=== PATIENT | female | born 1985 | race African-American/Black ===

== ENCOUNTER 2017-06-16 03:41 | Inpatient (IN) | payer OTHER ==
[~2017-06-16] VITALS: Ht 149.9 cm; Wt 72.0 kg
[2017-06-16 04:34] LABS: HEMATOCRIT 35.7 % (36.0-46.0); HEMOGLOBIN 12.2 G/DL (11.9-15.5); MCH 30.1 PG (29.0-34.0); MCHC 34.2 G/DL (30.0-36.0); MCV 88.1 FL (83-99); RBC DIS.WIDTH-CV 12.4 % (11.8-14.6); RBC DIS.WIDTH-SD 40.3 % (39-53); RED BLOOD COUNT 4.05 M/uL (3.80-5.20); WHITE BLOOD COUNT 15.9 K/uL (4.1-10.2)
[2017-06-16 04:43] LABS: CHLORIDE 107 mEq/L (99-109); POTASSIUM 4.2 mEq/L (3.7-5.4); SODIUM 137 mEq/L (136-147)
[2017-06-16 04:45] LABS: GLUCOSE 76 mg/dL (70-99)
[2017-06-16 04:48] LABS: SERUM ETHYL ALCOHOL < 10 mg/dL
[2017-06-16 04:49] LABS: GFR ESTIMATE (CALCULATED) > 59 mL/min/
[2017-06-16 04:50] LABS: UREA NITROGEN (BUN) 20 mg/dL (9-23)
[2017-06-16 04:57] LABS: QUANTITATIVE HCG < 4.0 MIU/ML
[2017-06-16 05:20] LABS: PLAT.SUFFICIENCY ADEQUATE; PLATELET COUNT 222 K/uL (156-360)
[2017-06-16 06:14] LABS: ACETAMINOPHEN (TYLENOL) < 10 mcg/mL (10-30); SALICYLATE < 5.0 MG/DL (15-30)
[2017-06-16 11:27] LABS: APPEARANCE SL.HAZY ((CLEAR)); BILIRUBIN NEGATIVE; BLOOD SMALL; COLOR YELLOW ((YELLOW)); GLUCOSE (STRIP) NEGATIVE; KETONES 80; LEUKOCYTES NEGATIVE; NITRITE NEGATIVE; PROTEIN (STRIP) 30; SPECIFIC GRAVITY 1.026 (1.000-1.030); UROBILINOGEN 0.2 MG/DL (0.2-1.0)
[2017-06-16 11:29] LABS: BACTERIA RARE /HPF; EPITHELIAL CELLS RARE /HPF; MUCUS TRACE /LPF; RED BLOOD CELLS 0-5 /HPF (0-5); UCUL ADDED? NO; WHITE BLOOD CELLS 0-5 /HPF (0-5)
[2017-06-16 11:35] LABS: AMPHETAMINE NEGATIVE (500 ng/mL); BARBITURATES NEGATIVE (200 ng/mL); BENZODIAZEPINES PRESUMPTIVE POSITIVE (150 ng/mL); BUPRENORPHINE NEGATIVE (10 ng/mL); COCAINE NEGATIVE (150 ng/mL); METHADONE NEGATIVE (200 ng/mL); METHAMPHETAMINE NEGATIVE (500 ng/mL); OPIATES (MORPHINE) NEGATIVE (100 ng/mL); OXYCODONE NEGATIVE (100 ng/mL); PHENCYCLIDINE NEGATIVE (25 ng/mL); PROPOXYPHENE NEGATIVE (300 ng/mL); THC CANNABINOIDS NEGATIVE (50 ng/mL); TRICYCLIC ANTIDEPRESSANTS PRESUMPTIVE POSITIVE (300 ng/mL)
[2017-06-16 12:18] LABS: BENZODIAZEPINES, URINE SCREEN Negative (200 ng/mL)
[2017-06-16 13:18] VITALS: BP 118/57
[2017-06-16 16:43] VITALS: BP 106/55
[2017-06-17 07:47] VITALS: BP 103/52
[2017-06-17 15:32] VITALS: BP 141/63
[2017-06-18 07:59] VITALS: BP 115/66
[2017-06-18 15:51] VITALS: BP 115/64
[2017-06-19 07:36] VITALS: BP 113/56
[2017-06-19 16:01] VITALS: BP 117/71
[2017-06-20 07:43] VITALS: BP 121/68
[2017-06-20] MEDS ORDERED: FLUPHENAZINE HCL1 MG PO (09:04)
[2017-06-20] MEDS ORDERED: QUETIAPINE FUM400 MG PO (09:04)
== END 2017-06-20 10:29 | disposition home or self-care (01) | DRG 885 ==
LOC: EME 03:41 → EDOF 12:07 → 1WEST 12:07 → ENRESERV 12:20 → 1WEST 12:44
PROVIDERS: Emergency Medicine
DX: F31.81 Bipolar II disorder (principal); R45.851 Suicidal ideations; F22 Delusional disorders; F20.9 Schizophrenia, unspecified; Z91.14 Patient's other noncompliance with medication regimen; Z81.8 Family history of other mental and behavioral disorders; Z68.32 Body mass index [BMI] 32.0-32.9, adult
CPT/HCPCS: 71045; 80048; 81003; 84702; 84999; 85027; 90837; 97150 GO; 97165 GO; 99281; 99285; G0480; J1630; J2060; Q0177

== ENCOUNTER 2017-07-03 02:56 | Inpatient (IN) | payer OTHER ==
[~2017-07-03] VITALS: Ht 154.9 cm; Wt 66.8 kg
[~2017-07-03 02:56] MED LIST: FLUPHENAZINE HCL1 MG PO; QUETIAPINE FUM400 MG PO
[2017-07-03 03:36] LABS: HEMATOCRIT 38.1 % (36.0-46.0); HEMOGLOBIN 13.4 G/DL (11.9-15.5); MCH 30.1 PG (29.0-34.0); MCHC 35.2 G/DL (30.0-36.0); MCV 85.6 FL (83-99); PLATELET COUNT 256 K/uL (156-360); RBC DIS.WIDTH-CV 12.6 % (11.8-14.6); RBC DIS.WIDTH-SD 39.2 % (39-53); RED BLOOD COUNT 4.45 M/uL (3.80-5.20); WHITE BLOOD COUNT 15.4 K/uL (4.1-10.2)
[2017-07-03 03:53] LABS: CHLORIDE 99 mEq/L (99-109); POTASSIUM 3.7 mEq/L (3.7-5.4); SODIUM 135 mEq/L (136-147)
[2017-07-03 03:55] LABS: GLUCOSE 92 mg/dL (70-99)
[2017-07-03 03:58] LABS: SERUM ETHYL ALCOHOL < 10 mg/dL
[2017-07-03 03:59] LABS: CREATININE 1.4 mg/dL (0.6-1.3); GFR ESTIMATE (CALCULATED) 57 mL/min/
[2017-07-03 04:00] LABS: UREA NITROGEN (BUN) 17 mg/dL (9-23)
[2017-07-03 04:07] LABS: QUANTITATIVE HCG < 4.0 MIU/ML
[2017-07-03 10:58] LABS: APPEARANCE SL.HAZY ((CLEAR)); BILIRUBIN NEGATIVE; BLOOD SMALL; COLOR YELLOW ((YELLOW)); GLUCOSE (STRIP) NEGATIVE; KETONES 80; LEUKOCYTES NEGATIVE; NITRITE NEGATIVE; PROTEIN (STRIP) 30; SPECIFIC GRAVITY 1.023 (1.000-1.030); UROBILINOGEN 0.2 MG/DL (0.2-1.0)
[2017-07-03 11:06] LABS: AMPHETAMINE NEGATIVE (500 ng/mL); BARBITURATES NEGATIVE (200 ng/mL); BENZODIAZEPINES NEGATIVE (150 ng/mL); BUPRENORPHINE NEGATIVE (10 ng/mL); COCAINE NEGATIVE (150 ng/mL); METHADONE NEGATIVE (200 ng/mL); METHAMPHETAMINE NEGATIVE (500 ng/mL); OPIATES (MORPHINE) NEGATIVE (100 ng/mL); OXYCODONE NEGATIVE (100 ng/mL); PHENCYCLIDINE NEGATIVE (25 ng/mL); PROPOXYPHENE NEGATIVE (300 ng/mL); THC CANNABINOIDS NEGATIVE (50 ng/mL); TRICYCLIC ANTIDEPRESSANTS PRESUMPTIVE POSITIVE (300 ng/mL)
[2017-07-03 11:13] LABS: BACTERIA RARE /HPF; EPITHELIAL CELLS RARE /HPF; MUCUS TRACE /LPF; UCUL ADDED? NO; WHITE BLOOD CELLS 0-5 /HPF (0-5)
[2017-07-04 12:07] VITALS: BP 101/64
[2017-07-04 12:09] VITALS: BP 101/64
[2017-07-04 16:04] VITALS: BP 102/65
[2017-07-05 07:44] VITALS: BP 103/58
[2017-07-05 15:30] VITALS: BP 110/62
[2017-07-06 07:16] VITALS: BP 98/62
[2017-07-06 15:32] VITALS: BP 160/72
[2017-07-06] MEDS ORDERED: PROLIXIN1 MG PO (19:43)
[2017-07-07 07:41] VITALS: BP 115/55
[2017-07-07 15:36] VITALS: BP 126/76
[2017-07-08 08:10] VITALS: BP 124/61
[2017-07-08 15:39] VITALS: BP 130/55
[2017-07-09 09:11] VITALS: BP 117/66
[2017-07-09 15:09] VITALS: BP 162/89
[2017-07-10 08:01] VITALS: BP 118/77
[2017-07-10 15:25] VITALS: BP 129/83
[2017-07-11 07:51] VITALS: BP 115/66
[2017-07-11 15:56] VITALS: BP 131/72
[2017-07-12 07:33] VITALS: BP 132/60
[2017-07-12 15:20] VITALS: BP 122/74
[2017-07-13 07:43] VITALS: BP 113/61
[2017-07-13] MEDS ORDERED: FLUPHENAZINE HCL1 MG PO (10:35)
[2017-07-13] MEDS ORDERED: QUETIAPINE FUM300 M1 PO (10:35)
[2017-07-13] MEDS ORDERED: FLUPHENAZI25 MG/1 ML IM (10:36)
== END 2017-07-13 12:29 | disposition home or self-care (01) | DRG 885 ==
LOC: EME 02:56 → 1WEST 07-04 10:26 → EDOF 07-04 10:26 → ENRESERV 07-04 11:20 → 1WEST 07-04 11:52
PROVIDERS: Emergency Medicine
DX: F20.0 Paranoid schizophrenia (principal); E86.0 Dehydration; Z81.8 Family history of other mental and behavioral disorders
CPT/HCPCS: 80048; 81003; 84702; 85027; 90837; 97150 GO; 97165 GO; 99281; 99285; G0480; J2680

== ENCOUNTER 2017-08-06 06:35 | Emergency (ER) | payer OTHER ==
[~2017-08-06] VITALS: Ht 154.9 cm; Wt 69.8 kg
[~2017-08-06 06:35] MED LIST changes: +FLUPHENAZI25 MG/1 ML IM; +PROLIXIN1 MG PO; +QUETIAPINE FUM300 M1 PO
[2017-08-06 07:21] LABS: APPEARANCE CLEAR ((CLEAR)); BILIRUBIN NEGATIVE; BLOOD NEGATIVE; COLOR YELLOW ((YELLOW)); GLUCOSE (STRIP) NEGATIVE; KETONES NEGATIVE; LEUKOCYTES NEGATIVE; NITRITE NEGATIVE; PROTEIN (STRIP) NEGATIVE; SPECIFIC GRAVITY 1.024 (1.000-1.030); UCUL ADDED? NO; UROBILINOGEN 0.2 MG/DL (0.2-1.0)
[2017-08-06 07:44] LABS: AMPHETAMINE NEGATIVE (500 ng/mL); BARBITURATES NEGATIVE (200 ng/mL); BENZODIAZEPINES NEGATIVE (150 ng/mL); BUPRENORPHINE NEGATIVE (10 ng/mL); COCAINE NEGATIVE (150 ng/mL); METHADONE NEGATIVE (200 ng/mL); METHAMPHETAMINE NEGATIVE (500 ng/mL); OPIATES (MORPHINE) NEGATIVE (100 ng/mL); OXYCODONE NEGATIVE (100 ng/mL); PHENCYCLIDINE NEGATIVE (25 ng/mL); PROPOXYPHENE NEGATIVE (300 ng/mL); THC CANNABINOIDS NEGATIVE (50 ng/mL); TRICYCLIC ANTIDEPRESSANTS NEGATIVE (300 ng/mL)
[2017-08-06 07:56] LABS: HEMATOCRIT 35.8 % (36.0-46.0); HEMOGLOBIN 11.6 G/DL (11.9-15.5); MCH 29.6 PG (29.0-34.0); MCHC 32.4 G/DL (30.0-36.0); MCV 91.3 FL (83-99); PLATELET COUNT 241 K/uL (156-360); RBC DIS.WIDTH-CV 12.6 % (11.8-14.6); RBC DIS.WIDTH-SD 42.1 % (39-53); RED BLOOD COUNT 3.92 M/uL (3.80-5.20); WHITE BLOOD COUNT 10.1 K/uL (4.1-10.2)
[2017-08-06 08:31] LABS: CHLORIDE 105 mEq/L (99-109); POTASSIUM 3.6 mEq/L (3.7-5.4); QUANTITATIVE HCG < 4.0 MIU/ML; SODIUM 136 mEq/L (136-147)
[2017-08-06 08:33] LABS: GLUCOSE 90 mg/dL (70-99)
[2017-08-06 08:36] LABS: CREATININE 0.7 mg/dL (0.6-1.3); GFR ESTIMATE (CALCULATED) > 59 mL/min/; SERUM ETHYL ALCOHOL < 10 mg/dL
[2017-08-06 08:37] LABS: UREA NITROGEN (BUN) 8 mg/dL (9-23)
[2017-08-06 16:35] VITALS: BP 112/71
== END 2017-08-06 16:35 ==
LOC: EME 06:35
PROVIDERS: Nurse Practitioner Family
DX: F20.9 Schizophrenia, unspecified (principal); F31.81 Bipolar II disorder; Z04.6 Encounter for general psychiatric examination, requested by authority; Z91.14 Patient's other noncompliance with medication regimen
CPT/HCPCS: 80048; 81003; 84702; 85027; 90837; 99281; 99285; G0480; J2060; J3486

== ENCOUNTER 2017-08-21 09:34 | Emergency (ER) | payer OTHER ==
[~2017-08-21] VITALS: Ht 154.9 cm; Wt 65.0 kg
[2017-08-21 10:25] LABS: BASOPHIL (%) 0.4 % (0-1); EOSINOPHIL (%) 1.5 % (0-5); EOSINOPHIL COUNT 0.1 K/uL (0-0.3); HEMATOCRIT 38.5 % (36.0-46.0); HEMOGLOBIN 12.3 G/DL (11.9-15.5); IMMATURE GRANULOCYTE (%) 0.6 % (0.0-0.7); LYMPHOCYTE (%) 25.9 % (15-42); LYMPHOCYTE COUNT 2.5 K/uL (1.0-2.8); MCH 29.9 PG (29.0-34.0); MCHC 31.9 G/DL (30.0-36.0); MCV 93.4 FL (83-99); MONOCYTE (%) 7.1 % (3-12); MONOCYTE COUNT 0.7 K/uL (0-0.8); NEUTROPHIL (%) 64.5 % (45-76); NEUTROPHIL COUNT 6.1 K/uL (1.8-6.4); PLATELET COUNT 195 K/uL (156-360); RBC DIS.WIDTH-CV 13.5 % (11.8-14.6); RBC DIS.WIDTH-SD 45.7 % (39-53); RED BLOOD COUNT 4.12 M/uL (3.80-5.20); WHITE BLOOD COUNT 9.5 K/uL (4.1-10.2)
[2017-08-21 10:46] LABS: CHLORIDE 110 mEq/L (99-109); POTASSIUM 4.3 mEq/L (3.7-5.4); SODIUM 138 mEq/L (136-147)
[2017-08-21 10:47] LABS: GLUCOSE 77 mg/dL (70-99)
[2017-08-21 10:51] LABS: CREATININE 0.7 mg/dL (0.6-1.3); GFR ESTIMATE (CALCULATED) > 59 mL/min/; SERUM ETHYL ALCOHOL < 10 mg/dL
[2017-08-21 10:52] LABS: UREA NITROGEN (BUN) 15 mg/dL (9-23)
[2017-08-21 11:45] VITALS: BP 103/57
[2017-08-22] MEDS ORDERED: DEPAKOTE500 MG PO (19:20)
[2017-08-22] MEDS ORDERED: SEROQUEL300 MG PO (19:20)
[2017-08-22] MEDS ORDERED: CENTRUM WOMEN1 EACH PO (19:22)
[2017-08-22] MEDS ORDERED: ADVIL200 MG PO (19:23)
[2017-08-22] MEDS ORDERED: BENADRYL25 MG PO (19:23)
[2017-08-22] MEDS ORDERED: IRON325 M1 PO (19:24)
== END 2017-08-21 11:52 | disposition home or self-care (01) ==
LOC: EME 09:34
PROVIDERS: Emergency Medicine
DX: F20.9 Schizophrenia, unspecified (principal); F41.9 Anxiety disorder, unspecified; F31.9 Bipolar disorder, unspecified
CPT/HCPCS: 80048; 81025; 85025; 90839; 93005; 99281; 99285; G0480

== ENCOUNTER 2017-08-22 14:44 | Emergency (ER) | payer OTHER ==
[~2017-08-22] VITALS: Ht 157.5 cm; Wt 71.9 kg
[2017-08-22 15:24] VITALS: BP 108/65
[2017-08-22] MEDS ORDERED: DEPAKOTE500 MG PO (19:20)
[2017-08-22] MEDS ORDERED: SEROQUEL300 MG PO (19:20)
[2017-08-22] MEDS ORDERED: CENTRUM WOMEN1 EACH PO (19:22)
[2017-08-22] MEDS ORDERED: ADVIL200 MG PO (19:23)
[2017-08-22] MEDS ORDERED: BENADRYL25 MG PO (19:23)
[2017-08-22] MEDS ORDERED: IRON325 M1 PO (19:24)
== END 2017-08-22 15:25 | disposition home or self-care (01) ==
LOC: EME 14:44
DX: F31.9 Bipolar disorder, unspecified (principal); E73.9 Lactose intolerance, unspecified
CPT/HCPCS: 99281; 99284

== ENCOUNTER 2017-08-22 17:08 | Inpatient (IN) | payer OTHER ==
[~2017-08-22] VITALS: Ht 157.5 cm; Wt 72.4 kg
[2017-08-22 17:47] LABS: HEMATOCRIT 33.4 % (36.0-46.0); HEMOGLOBIN 10.9 G/DL (11.9-15.5); MCH 29.8 PG (29.0-34.0); MCHC 32.6 G/DL (30.0-36.0); MCV 91.3 FL (83-99); RBC DIS.WIDTH-CV 13.4 % (11.8-14.6); RBC DIS.WIDTH-SD 43.8 % (39-53); RED BLOOD COUNT 3.66 M/uL (3.80-5.20); WHITE BLOOD COUNT 9.2 K/uL (4.1-10.2)
[2017-08-22 18:09] LABS: ALBUMIN 3.9 g/dL (3.2-4.8); CHLORIDE 107 mEq/L (99-109); SODIUM 138 mEq/L (136-147)
[2017-08-22 18:12] LABS: GLUCOSE 94 mg/dL (70-99); TOTAL PROTEIN 6.8 g/dL (6.4-8.3)
[2017-08-22 18:13] LABS: TOTAL BILIRUBIN 0.3 mg/dL (0.0-1.0)
[2017-08-22 18:14] LABS: POTASSIUM 3.4 mEq/L (3.7-5.4); SERUM ETHYL ALCOHOL < 10 mg/dL
[2017-08-22 18:15] LABS: ALKALINE PHOSPHATASE 62 IU/L (3-129); CREATININE 0.8 mg/dL (0.6-1.3); GFR ESTIMATE (CALCULATED) > 59 mL/min/
[2017-08-22 18:16] LABS: UREA NITROGEN (BUN) 14 mg/dL (9-23)
[2017-08-22 18:17] LABS: AST (GOT) 21 IU/L (2-34); PLAT.SUFFICIENCY ADEQUATE; PLATELET COUNT 236 K/uL (156-360)
[2017-08-22 18:18] LABS: ALT (GPT) 21 IU/L (3-49)
[2017-08-22 18:24] LABS: QUANTITATIVE HCG < 4.0 MIU/ML
[2017-08-22] MEDS ORDERED: SEROQUEL300 MG PO (19:20)
[2017-08-22] MEDS ORDERED: DEPAKOTE500 MG PO (19:20)
[2017-08-22] MEDS ORDERED: CENTRUM WOMEN1 EACH PO (19:22)
[2017-08-22] MEDS ORDERED: BENADRYL25 MG PO (19:23)
[2017-08-22] MEDS ORDERED: ADVIL200 MG PO (19:23)
[2017-08-22] MEDS ORDERED: IRON325 M1 PO (19:24)
[2017-08-22 21:12] VITALS: BP 126/77
[2017-08-23 07:46] VITALS: BP 136/56
[2017-08-23 15:56] VITALS: BP 116/61
[2017-08-24 07:47] VITALS: BP 123/61
[2017-08-24 15:53] VITALS: BP 120/67
[2017-08-25 09:46] VITALS: BP 136/57
[2017-08-25 16:24] VITALS: BP 107/57
[2017-08-26 08:04] VITALS: BP 97/46
[2017-08-26 15:33] VITALS: BP 110/57
[2017-08-27 07:56] VITALS: BP 115/63
[2017-08-27 16:21] VITALS: BP 104/56
[2017-08-28 07:56] VITALS: BP 102/55
[2017-08-28 15:46] VITALS: BP 113/63
[2017-08-29 08:01] VITALS: BP 108/56
[2017-08-29] MEDS ORDERED: DIVALPROEX SOD500 MG PO (09:28)
[2017-08-29] MEDS ORDERED: SEROQUEL300 MG PO (09:28)
[2017-08-29] MEDS ORDERED: FLUPHENAZI25 MG/1 ML IM (09:29)
== END 2017-08-29 11:43 | disposition home or self-care (01) | DRG 885 ==
LOC: EME 17:08 → 1WEST 18:34 → EDOF 18:34 → 1WEST 18:34 → ENRESERV 20:55 → 1WEST 08-29 11:43
PROVIDERS: Emergency Medicine
DX: F25.0 Schizoaffective disorder, bipolar type (principal); F41.9 Anxiety disorder, unspecified; Z91.14 Patient's other noncompliance with medication regimen; Z81.8 Family history of other mental and behavioral disorders
CPT/HCPCS: 80048; 80053; 80164; 81003; 81025; 84702; 85025; 85027; 90839; 93005; 97150 GO; 97166 GO; 99281; 99284; 99285; G0480; J2680

== ENCOUNTER 2017-09-02 21:32 | Inpatient (IN) | payer OTHER ==
[~2017-09-02] VITALS: Ht 157.5 cm; Wt 62.7 kg
[~2017-09-02 21:32] MED LIST changes: +ADVIL200 MG PO; +BENADRYL25 MG PO; +CENTRUM WOMEN1 EACH PO; +DEPAKOTE500 MG PO; +DIVALPROEX SOD500 MG PO; +IRON325 M1 PO; +SEROQUEL300 MG PO
[2017-09-02 21:59] LABS: HEMATOCRIT 34.1 % (36.0-46.0); HEMOGLOBIN 11.3 G/DL (11.9-15.5); MCH 29.6 PG (29.0-34.0); MCHC 33.1 G/DL (30.0-36.0); MCV 89.3 FL (83-99); PLATELET COUNT 188 K/uL (156-360); RBC DIS.WIDTH-CV 12.9 % (11.8-14.6); RBC DIS.WIDTH-SD 41.9 % (39-53); RED BLOOD COUNT 3.82 M/uL (3.80-5.20); WHITE BLOOD COUNT 11.7 K/uL (4.1-10.2)
[2017-09-02 22:09] LABS: CHLORIDE 105 mEq/L (99-109); POTASSIUM 5.1 mEq/L (3.7-5.4); SODIUM 138 mEq/L (136-147)
[2017-09-02 22:11] LABS: GLUCOSE 104 mg/dL (70-99); TOTAL PROTEIN 6.9 g/dL (6.4-8.3)
[2017-09-02 22:13] LABS: TOTAL BILIRUBIN 0.3 mg/dL (0.0-1.0)
[2017-09-02 22:14] LABS: ALKALINE PHOSPHATASE 80 IU/L (3-129); SERUM ETHYL ALCOHOL < 10 mg/dL
[2017-09-02 22:15] LABS: CREATININE 0.7 mg/dL (0.6-1.3); GFR ESTIMATE (CALCULATED) > 59 mL/min/
[2017-09-02 22:16] LABS: AST (GOT) 28 IU/L (2-34); UREA NITROGEN (BUN) 16 mg/dL (9-23)
[2017-09-02 22:18] LABS: ALT (GPT) 18 IU/L (3-49)
[2017-09-02 22:23] LABS: QUANTITATIVE HCG < 4.0 MIU/ML
[2017-09-03 00:01] LABS: APPEARANCE CLEAR ((CLEAR)); BILIRUBIN NEGATIVE; BLOOD NEGATIVE; COLOR YELLOW ((YELLOW)); GLUCOSE (STRIP) NEGATIVE; KETONES NEGATIVE; LEUKOCYTES NEGATIVE; NITRITE NEGATIVE; PROTEIN (STRIP) NEGATIVE; SPECIFIC GRAVITY 1.024 (1.000-1.030); UROBILINOGEN 0.2 MG/DL (0.2-1.0)
[2017-09-03 00:16] LABS: AMPHETAMINE NEGATIVE (500 ng/mL); BARBITURATES NEGATIVE (200 ng/mL); BENZODIAZEPINES NEGATIVE (150 ng/mL); BUPRENORPHINE NEGATIVE (10 ng/mL); COCAINE NEGATIVE (150 ng/mL); METHADONE NEGATIVE (200 ng/mL); METHAMPHETAMINE NEGATIVE (500 ng/mL); OPIATES (MORPHINE) NEGATIVE (100 ng/mL); OXYCODONE NEGATIVE (100 ng/mL); PHENCYCLIDINE NEGATIVE (25 ng/mL); PROPOXYPHENE NEGATIVE (300 ng/mL); THC CANNABINOIDS NEGATIVE (50 ng/mL); TRICYCLIC ANTIDEPRESSANTS PRESUMPTIVE POSITIVE (300 ng/mL)
[2017-09-03 03:28] VITALS: BP 106/59
[2017-09-03 10:12] VITALS: BP 115/72
[2017-09-04 07:55] VITALS: BP 82/45
[2017-09-04 16:05] VITALS: BP 120/67
[2017-09-05 08:03] VITALS: BP 103/63
[2017-09-05 15:37] VITALS: BP 119/54
[2017-09-06 07:47] VITALS: BP 127/67
[2017-09-06 15:40] VITALS: BP 117/74
[2017-09-07 08:09] VITALS: BP 137/60
[2017-09-07 15:32] VITALS: BP 113/67
[2017-09-08 07:46] VITALS: BP 107/59
[2017-09-08] MEDS ORDERED: SEROQUEL300 MG PO (08:50)
[2017-09-08] MEDS ORDERED: DIVALPROEX SOD500 MG PO (08:50)
[2017-09-08] MEDS ORDERED: FLUPHENAZI25 MG/1 ML IM ×3 (08:51→11:24)
== END 2017-09-08 11:16 | disposition home or self-care (01) | DRG 885 ==
LOC: EME 21:32 → 1WEST 09-03 02:02 → EDOF 09-03 02:02 → 1WEST 09-03 02:02 → ENRESERV 09-03 02:32 → 1WEST 09-03 03:22
PROVIDERS: Emergency Medicine
DX: F25.0 Schizoaffective disorder, bipolar type (principal); Z91.14 Patient's other noncompliance with medication regimen; Z91.19 Patient's noncompliance with other medical treatment and regimen; E73.9 Lactose intolerance, unspecified; Z59.0 Homelessness; Z78.1 Physical restraint status; Z81.8 Family history of other mental and behavioral disorders
CPT/HCPCS: 80053; 80164; 81003; 84702; 85027; 90837; 97150 GO; 99281; 99285; G0480; J1200; J1630; J2060; J2680; Q0177

== ENCOUNTER 2017-09-15 04:11 | Inpatient (IN) | payer OTHER ==
[~2017-09-15] VITALS: Ht 152.4 cm; Wt 72.0 kg
[2017-09-15 07:29] LABS: HEMATOCRIT 35.2 % (36.0-46.0); HEMOGLOBIN 11.7 G/DL (11.9-15.5); MCH 29.4 PG (29.0-34.0); MCHC 33.2 G/DL (30.0-36.0); MCV 88.4 FL (83-99); RBC DIS.WIDTH-SD 41.7 % (39-53); RED BLOOD COUNT 3.98 M/uL (3.80-5.20); WHITE BLOOD COUNT 9.2 K/uL (4.1-10.2)
[2017-09-15 08:00] LABS: PLAT.SUFFICIENCY ADEQUATE; PLATELET COUNT 229 K/uL (156-360)
[2017-09-15 08:52] LABS: ALBUMIN 3.9 G/DL (3.2-4.8); ALKALINE PHOSPHATASE 55 IU/L (3-129); ALT (GPT) 14 IU/L (3-49); AST (GOT) 18 IU/L (2-34); CHLORIDE 107 MEQ/L (99-109); CREATININE 0.6 MG/DL (0.6-1.3); GFR ESTIMATE (CALCULATED) > 59 mL/min/; GLUCOSE 84 mg/dL (70-99); POTASSIUM 3.6 MEQ/L (3.7-5.4); SODIUM 139 MEQ/L (136-147); TOTAL BILIRUBIN 0.3 MG/DL (0.0-1.0); TOTAL PROTEIN 6.8 G/DL (6.4-8.3); UREA NITROGEN (BUN) 11 mg/dL (9-23)
[2017-09-15 08:53] LABS: SERUM ETHYL ALCOHOL < 10 mg/dL
[2017-09-15 09:20] LABS: QUANTITATIVE HCG < 4.0 MIU/ML
[2017-09-15 16:18] VITALS: BP 110/72
[2017-09-15 16:35] VITALS: BP 110/72
[2017-09-16 08:00] VITALS: BP 102/55
[2017-09-16 15:37] VITALS: BP 120/69
[2017-09-17 09:27] VITALS: BP 126/51
[2017-09-17 15:24] VITALS: BP 109/59
[2017-09-18 07:45] VITALS: BP 105/63
[2017-09-18 15:13] VITALS: BP 132/78
[2017-09-19 07:34] VITALS: BP 118/69
[2017-09-19] MEDS ORDERED: COGENTIN0.5 MG PO (09:09)
[2017-09-19] MEDS ORDERED: HALDOL5 MG PO (09:09)
== END 2017-09-19 10:39 | disposition home or self-care (01) | DRG 885 ==
LOC: EME 04:11 → EDOF 13:34 → 1WEST 13:34 → ENRESERV 16:17 → 1WEST 16:18
PROVIDERS: Emergency Medicine
DX: F25.0 Schizoaffective disorder, bipolar type (principal); R45.851 Suicidal ideations; R45.850 Homicidal ideations; Z91.14 Patient's other noncompliance with medication regimen; E73.9 Lactose intolerance, unspecified; Z81.8 Family history of other mental and behavioral disorders
CPT/HCPCS: 80053; 80164; 84702; 85027; 90837; 97150 GO; 97165 GO; 99281; 99285; G0480; J1630; J1631; J2060; J3486; Q0177

== ENCOUNTER 2017-10-04 00:31 | Emergency (ER) | payer OTHER ==
[~2017-10-04] VITALS: Ht 160 cm; Wt 71.9 kg
[~2017-10-04 00:31] MED LIST changes: +COGENTIN0.5 MG PO; +HALDOL5 MG PO
[2017-10-04 02:34] VITALS: BP 133/93
== END 2017-10-04 02:34 | disposition home or self-care (01) ==
LOC: EME 00:31 → EXP 00:31
DX: S93.401A Sprain of unspecified ligament of right ankle, initial encounter (principal); S80.811A Abrasion, right lower leg, initial encounter; W18.30XA Fall on same level, unspecified, initial encounter; Y93.01 Activity, walking, marching and hiking; Z59.0 Homelessness; Z91.013 Allergy to seafood
CPT/HCPCS: 73610; 99281; 99283

== ENCOUNTER 2017-10-04 17:02 | Inpatient (IN) | payer OTHER ==
[~2017-10-04] VITALS: Ht 162.6 cm; Wt 73.4 kg
[2017-10-04 18:07] LABS: BASOPHIL (%) 0.2 % (0-1); EOSINOPHIL (%) 0.5 % (0-5); EOSINOPHIL COUNT 0.1 K/uL (0-0.3); HEMATOCRIT 35.6 % (36.0-46.0); HEMOGLOBIN 11.7 G/DL (11.9-15.5); IMMATURE GRANULOCYTE (%) 0.3 % (0.0-0.7); LYMPHOCYTE (%) 22.2 % (15-42); LYMPHOCYTE COUNT 2.3 K/uL (1.0-2.8); MCHC 32.9 G/DL (30.0-36.0); MCV 88.3 FL (83-99); MONOCYTE (%) 8.7 % (3-12); MONOCYTE COUNT 0.9 K/uL (0-0.8); NEUTROPHIL (%) 68.1 % (45-76); PLATELET COUNT 253 K/uL (156-360); RBC DIS.WIDTH-CV 13.5 % (11.8-14.6); RBC DIS.WIDTH-SD 43.9 % (39-53); RED BLOOD COUNT 4.03 M/uL (3.80-5.20); WHITE BLOOD COUNT 10.3 K/uL (4.1-10.2)
[2017-10-04 18:16] LABS: ALBUMIN 4.3 g/dL (3.2-4.8); CHLORIDE 105 mEq/L (99-109); POTASSIUM 4.5 mEq/L (3.7-5.4); SODIUM 140 mEq/L (136-147)
[2017-10-04 18:18] LABS: GLUCOSE 112 mg/dL (70-99)
[2017-10-04 18:19] LABS: TOTAL PROTEIN 7.3 g/dL (6.4-8.3)
[2017-10-04 18:20] LABS: TOTAL BILIRUBIN 0.4 mg/dL (0.0-1.0)
[2017-10-04 18:21] LABS: SERUM ETHYL ALCOHOL < 10 mg/dL
[2017-10-04 18:22] LABS: GFR ESTIMATE (CALCULATED) > 59 mL/min/
[2017-10-04 18:23] LABS: ALKALINE PHOSPHATASE 71 IU/L (3-129)
[2017-10-04 18:24] LABS: AST (GOT) 21 IU/L (2-34); UREA NITROGEN (BUN) 18 mg/dL (9-23)
[2017-10-04 18:25] LABS: SALICYLATE < 5.0 MG/DL (15-30)
[2017-10-04 18:26] LABS: ACETAMINOPHEN (TYLENOL) < 10 mcg/mL (10-30); ALT (GPT) 18 IU/L (3-49)
[2017-10-04 18:30] LABS: APPEARANCE CLEAR ((CLEAR)); BILIRUBIN NEGATIVE; BLOOD NEGATIVE; COLOR YELLOW ((YELLOW)); GLUCOSE (STRIP) NEGATIVE; KETONES 5; LEUKOCYTES NEGATIVE; NITRITE NEGATIVE; PROTEIN (STRIP) 30; SPECIFIC GRAVITY 1.031 (1.000-1.030); UCUL ADDED? NO
[2017-10-04 18:32] LABS: QUANTITATIVE HCG < 4.0 MIU/ML
[2017-10-04 18:43] LABS: AMPHETAMINE NEGATIVE (500 ng/mL); BARBITURATES NEGATIVE (200 ng/mL); BENZODIAZEPINES NEGATIVE (150 ng/mL); BUPRENORPHINE NEGATIVE (10 ng/mL); COCAINE NEGATIVE (150 ng/mL); METHADONE NEGATIVE (200 ng/mL); METHAMPHETAMINE NEGATIVE (500 ng/mL); OPIATES (MORPHINE) NEGATIVE (100 ng/mL); OXYCODONE NEGATIVE (100 ng/mL); PHENCYCLIDINE NEGATIVE (25 ng/mL); PROPOXYPHENE NEGATIVE (300 ng/mL); THC CANNABINOIDS NEGATIVE (50 ng/mL); TRICYCLIC ANTIDEPRESSANTS NEGATIVE (300 ng/mL)
[2017-10-04 20:19] VITALS: BP 96/55
[2017-10-04 20:25] VITALS: BP 96/55
[2017-10-05 08:00] VITALS: BP 105/60
[2017-10-05 16:00] VITALS: BP 109/55
[2017-10-06 07:57] VITALS: BP 123/74
[2017-10-06 15:57] VITALS: BP 108/68
[2017-10-07 07:53] VITALS: BP 123/61
[2017-10-07 15:36] VITALS: BP 110/59
[2017-10-08 07:40] VITALS: BP 111/56
[2017-10-08 15:31] VITALS: BP 114/56
[2017-10-09 07:53] VITALS: BP 119/70
[2017-10-09 15:41] VITALS: BP 128/62
[2017-10-10 07:51] VITALS: BP 146/70
[2017-10-10 16:00] VITALS: BP 115/78
[2017-10-11 07:47] VITALS: BP 108/63
[2017-10-11] MEDS ORDERED: DIVALPROEX SOD500 MG PO (10:59)
[2017-10-11] MEDS ORDERED: ZIPRASIDONE HCL80 MG PO (10:59)
[2017-10-11] MEDS ORDERED: HALDOL DEC100 MG/1 M IM (11:07)
== END 2017-10-11 12:29 | disposition home or self-care (01) | DRG 885 ==
LOC: EME 17:02 → 1WEST 19:14 → EDOF 19:14 → ENRESERV 20:14 → 1WEST 20:14
PROVIDERS: Emergency Medicine
DX: F25.0 Schizoaffective disorder, bipolar type (principal); F60.9 Personality disorder, unspecified; R45.851 Suicidal ideations; E73.9 Lactose intolerance, unspecified; Z81.8 Family history of other mental and behavioral disorders; Z91.14 Patient's other noncompliance with medication regimen; Z91.013 Allergy to seafood
CPT/HCPCS: 80053; 80164; 81003; 84702; 85025; 90837; 97150 GO; 97166 GO; 99281; 99285; G0480; J1630; J1631; J2060; Q0177

== ENCOUNTER 2017-10-12 21:04 | Emergency (ER) | payer OTHER ==
[~2017-10-12] VITALS: Ht 165.1 cm; Wt 73.0 kg
[~2017-10-12 21:04] MED LIST changes: +HALDOL DEC100 MG/1 M IM; +ZIPRASIDONE HCL80 MG PO
[2017-10-12 23:47] VITALS: BP 119/78
== END 2017-10-12 23:48 ==
LOC: EME 21:04
DX: F20.9 Schizophrenia, unspecified (principal); Z59.0 Homelessness
CPT/HCPCS: 90839

== ENCOUNTER 2017-10-13 19:38 | Inpatient (IN) | payer OTHER ==
[~2017-10-13] VITALS: Ht 160 cm; Wt 70.9 kg
[2017-10-13 21:17] LABS: HEMATOCRIT 37.3 % (36.0-46.0); HEMOGLOBIN 12.6 G/DL (11.9-15.5); MCH 29.9 PG (29.0-34.0); MCHC 33.8 G/DL (30.0-36.0); MCV 88.4 FL (83-99); PLATELET COUNT 192 K/uL (156-360); RBC DIS.WIDTH-CV 13.7 % (11.8-14.6); RBC DIS.WIDTH-SD 44.2 % (39-53); RED BLOOD COUNT 4.22 M/uL (3.80-5.20); WHITE BLOOD COUNT 9.9 K/uL (4.1-10.2)
[2017-10-13 21:33] LABS: CHLORIDE 108 mEq/L (99-109); POTASSIUM 4.1 mEq/L (3.7-5.4); SODIUM 142 mEq/L (136-147)
[2017-10-13 21:35] LABS: GLUCOSE 102 mg/dL (70-99)
[2017-10-13 21:38] LABS: SERUM ETHYL ALCOHOL < 10 mg/dL
[2017-10-13 21:39] LABS: CREATININE 0.8 mg/dL (0.6-1.3); GFR ESTIMATE (CALCULATED) > 59 mL/min/
[2017-10-13 21:40] LABS: UREA NITROGEN (BUN) 19 mg/dL (9-23)
[2017-10-13 21:44] LABS: APPEARANCE SL.HAZY ((CLEAR)); BILIRUBIN NEGATIVE; BLOOD NEGATIVE; COLOR YELLOW ((YELLOW)); GLUCOSE (STRIP) NEGATIVE; KETONES 5; LEUKOCYTES NEGATIVE; NITRITE NEGATIVE; PROTEIN (STRIP) 30; SPECIFIC GRAVITY 1.031 (1.000-1.030); UROBILINOGEN 0.2 MG/DL (0.2-1.0)
[2017-10-13 21:47] LABS: QUANTITATIVE HCG < 4.0 MIU/ML
[2017-10-13 21:57] LABS: BACTERIA RARE /HPF; EPITHELIAL CELLS 3+ /HPF; MUCUS 3+ /LPF; UCUL ADDED? NO; WHITE BLOOD CELLS NONE SEEN /HPF (0-5)
[2017-10-13 21:58] LABS: AMPHETAMINE NEGATIVE (500 ng/mL); BARBITURATES NEGATIVE (200 ng/mL); BENZODIAZEPINES NEGATIVE (150 ng/mL); BUPRENORPHINE NEGATIVE (10 ng/mL); COCAINE NEGATIVE (150 ng/mL); METHADONE NEGATIVE (200 ng/mL); METHAMPHETAMINE NEGATIVE (500 ng/mL); OPIATES (MORPHINE) NEGATIVE (100 ng/mL); OXYCODONE NEGATIVE (100 ng/mL); PHENCYCLIDINE NEGATIVE (25 ng/mL); PROPOXYPHENE NEGATIVE (300 ng/mL); THC CANNABINOIDS NEGATIVE (50 ng/mL); TRICYCLIC ANTIDEPRESSANTS NEGATIVE (300 ng/mL)
[2017-10-14 09:57] VITALS: BP 108/54
[2017-10-14 16:15] VITALS: BP 111/55
[2017-10-15 09:11] VITALS: BP 100/60
[2017-10-15 16:09] VITALS: BP 111/56
[2017-10-17 08:00] VITALS: BP 114/66
[2017-10-17 16:17] VITALS: BP 120/84
[2017-10-18 07:39] VITALS: BP 101/64
[2017-10-18 16:10] VITALS: BP 117/88
[2017-10-19 08:05] VITALS: BP 91/54
[2017-10-19 16:09] VITALS: BP 132/60
[2017-10-20 08:22] VITALS: BP 105/60
[2017-10-20 17:06] VITALS: BP 134/63
[2017-10-21 09:23] VITALS: BP 101/56
[2017-10-21 16:38] VITALS: BP 116/65
[2017-10-22 08:03] VITALS: BP 86/52
[2017-10-22 15:25] VITALS: BP 103/57
[2017-10-23 07:47] VITALS: BP 87/55
[2017-10-23 15:59] VITALS: BP 112/65
[2017-10-24 08:24] VITALS: BP 80/50
[2017-10-24 16:23] VITALS: BP 132/83
[2017-10-25 08:11] VITALS: BP 91/53
[2017-10-25 16:51] VITALS: BP 118/64
[2017-10-26 07:58] VITALS: BP 93/60
[2017-10-26 17:13] VITALS: BP 118/68
[2017-10-27 08:11] VITALS: BP 101/56
[2017-10-27 16:18] VITALS: BP 103/65
[2017-10-28 09:07] VITALS: BP 94/52
[2017-10-28 16:36] VITALS: BP 121/72
[2017-10-29 09:40] VITALS: BP 86/49
[2017-10-29 17:08] VITALS: BP 108/69
[2017-10-30 09:43] VITALS: BP 82/49
[2017-10-31 08:07] VITALS: BP 97/55
[2017-10-31 09:00] VITALS: BP 121/64
[2017-10-31 16:34] VITALS: BP 135/60
[2017-11-01 07:48] VITALS: BP 89/53
[2017-11-01] MEDS ORDERED: ZIPRASIDONE HCL80 MG PO ×2 (10:19→10:20)
[2017-11-01] MEDS ORDERED: DIVALPROEX SOD500 MG PO ×2 (10:19→10:20)
[2017-11-01] MEDS ORDERED: CHLORPROMAZINE50 MG PO (10:19)
== END 2017-11-01 12:38 | disposition home or self-care (01) | DRG 885 ==
LOC: EME 19:38 → ENRESERV 21:00 → 1WEST 21:21 → EDOF 21:21 → 1WEST 22:34
PROVIDERS: Emergency Medicine
DX: F25.0 Schizoaffective disorder, bipolar type (principal); F60.0 Paranoid personality disorder; M25.571 Pain in right ankle and joints of right foot; R45.851 Suicidal ideations; Z59.0 Homelessness
CPT/HCPCS: 73610; 73630; 80048; 80164; 81003; 84702; 85027; 90837; 90839; 97150 GO; 99281; 99284; G0480; Q0177

== ENCOUNTER 2017-11-02 05:23 | Emergency (ER) | payer OTHER ==
[~2017-11-02] VITALS: Ht 154.9 cm; Wt 73.8 kg
[~2017-11-02 05:23] MED LIST changes: +CHLORPROMAZINE50 MG PO
[2017-11-02 06:04] LABS: HEMATOCRIT 34.1 % (36.0-46.0); HEMOGLOBIN 11.9 G/DL (11.9-15.5); MCH 30.3 PG (29.0-34.0); MCHC 34.9 G/DL (30.0-36.0); MCV 86.8 FL (83-99); PLATELET COUNT 166 K/uL (156-360); RBC DIS.WIDTH-CV 13.4 % (11.8-14.6); RBC DIS.WIDTH-SD 42.8 % (39-53); RED BLOOD COUNT 3.93 M/uL (3.80-5.20); WHITE BLOOD COUNT 10.2 K/uL (4.1-10.2)
[2017-11-02 06:17] LABS: CHLORIDE 101 mEq/L (99-109); POTASSIUM 3.5 mEq/L (3.7-5.4); SODIUM 138 mEq/L (136-147)
[2017-11-02 06:19] LABS: GLUCOSE 107 mg/dL (70-99)
[2017-11-02 06:22] LABS: SERUM ETHYL ALCOHOL < 10 mg/dL
[2017-11-02 06:23] LABS: CREATININE 0.8 mg/dL (0.6-1.3); GFR ESTIMATE (CALCULATED) > 59 mL/min/
[2017-11-02 06:24] LABS: UREA NITROGEN (BUN) 11 mg/dL (9-23)
[2017-11-02 06:30] LABS: QUANTITATIVE HCG < 4.0 MIU/ML
[2017-11-02 07:02] LABS: APPEARANCE CLEAR ((CLEAR)); BILIRUBIN NEGATIVE; BLOOD NEGATIVE; COLOR YELLOW ((YELLOW)); GLUCOSE (STRIP) NEGATIVE; KETONES 5; LEUKOCYTES NEGATIVE; NITRITE NEGATIVE; PROTEIN (STRIP) NEGATIVE; SPECIFIC GRAVITY 1.016 (1.000-1.030); UCUL ADDED? NO; UROBILINOGEN 0.2 MG/DL (0.2-1.0)
[2017-11-02 07:19] LABS: AMPHETAMINE NEGATIVE (500 ng/mL); BENZODIAZEPINES NEGATIVE (150 ng/mL); COCAINE NEGATIVE (150 ng/mL); METHAMPHETAMINE NEGATIVE (500 ng/mL); OPIATES (MORPHINE) NEGATIVE (100 ng/mL); PHENCYCLIDINE NEGATIVE (25 ng/mL); THC CANNABINOIDS NEGATIVE (50 ng/mL)
[2017-11-02 07:20] LABS: BARBITURATES NEGATIVE (200 ng/mL); BUPRENORPHINE NEGATIVE (10 ng/mL); METHADONE NEGATIVE (200 ng/mL); OXYCODONE NEGATIVE (100 ng/mL); PROPOXYPHENE NEGATIVE (300 ng/mL); TRICYCLIC ANTIDEPRESSANTS NEGATIVE (300 ng/mL)
[2017-11-02 08:05] VITALS: BP 120/68
== END 2017-11-02 08:09 | disposition home or self-care (01) ==
LOC: EME 05:23
PROVIDERS: Emergency Medicine
DX: F32.9 Major depressive disorder, single episode, unspecified (principal); R45.851 Suicidal ideations; F25.0 Schizoaffective disorder, bipolar type; F60.0 Paranoid personality disorder; Z59.0 Homelessness
CPT/HCPCS: 80048; 81003; 84702; 85027; 90839; 99281; 99284; G0480

== ENCOUNTER 2017-11-02 21:59 | Emergency (ER) | payer OTHER ==
[~2017-11-02] VITALS: Ht 154.9 cm; Wt 68.1 kg
[2017-11-02 22:59] LABS: HEMATOCRIT 34.3 % (36.0-46.0); HEMOGLOBIN 11.8 G/DL (11.9-15.5); MCH 29.9 PG (29.0-34.0); MCHC 34.4 G/DL (30.0-36.0); MCV 87.1 FL (83-99); RBC DIS.WIDTH-CV 13.5 % (11.8-14.6); RBC DIS.WIDTH-SD 43.2 % (39-53); RED BLOOD COUNT 3.94 M/uL (3.80-5.20); WHITE BLOOD COUNT 10.1 K/uL (4.1-10.2)
[2017-11-02 23:23] LABS: CHLORIDE 100 mEq/L (99-109); POTASSIUM 3.8 mEq/L (3.7-5.4); SODIUM 134 mEq/L (136-147)
[2017-11-02 23:25] LABS: GLUCOSE 100 mg/dL (70-99)
[2017-11-02 23:28] LABS: SERUM ETHYL ALCOHOL < 10 mg/dL
[2017-11-02 23:29] LABS: CREATININE 0.8 mg/dL (0.6-1.3); GFR ESTIMATE (CALCULATED) > 59 mL/min/
[2017-11-02 23:31] LABS: UREA NITROGEN (BUN) 13 mg/dL (9-23)
[2017-11-02 23:32] LABS: ACETAMINOPHEN (TYLENOL) < 10 mcg/mL (10-30); SALICYLATE < 5.0 MG/DL (15-30)
[2017-11-02 23:51] LABS: AMPHETAMINE NEGATIVE (500 ng/mL); BARBITURATES NEGATIVE (200 ng/mL); BENZODIAZEPINES NEGATIVE (150 ng/mL); BUPRENORPHINE NEGATIVE (10 ng/mL); COCAINE NEGATIVE (150 ng/mL); METHADONE NEGATIVE (200 ng/mL); METHAMPHETAMINE NEGATIVE (500 ng/mL); OPIATES (MORPHINE) NEGATIVE (100 ng/mL); OXYCODONE NEGATIVE (100 ng/mL); PHENCYCLIDINE NEGATIVE (25 ng/mL); PROPOXYPHENE NEGATIVE (300 ng/mL); THC CANNABINOIDS NEGATIVE (50 ng/mL); TRICYCLIC ANTIDEPRESSANTS NEGATIVE (300 ng/mL)
[2017-11-03 00:24] LABS: PLAT.SUFFICIENCY ADEQUATE; PLATELET COUNT 159 K/uL (156-360)
[2017-11-03 11:22] VITALS: BP 104/58
== END 2017-11-03 11:53 | disposition home or self-care (01) ==
LOC: EME 21:59
PROVIDERS: Emergency Medicine
DX: F25.0 Schizoaffective disorder, bipolar type (principal); F60.0 Paranoid personality disorder; F43.20 Adjustment disorder, unspecified; Z91.14 Patient's other noncompliance with medication regimen; E73.9 Lactose intolerance, unspecified; Z91.013 Allergy to seafood
CPT/HCPCS: 80048 91; 85027; 90837; 99281; 99285; G0480

== ENCOUNTER 2017-11-03 21:05 | Emergency (ER) | payer OTHER ==
[~2017-11-03] VITALS: Ht 154.9 cm; Wt 68.2 kg
[2017-11-04 09:57] VITALS: BP 104/55
== END 2017-11-04 10:01 | disposition home or self-care (01) ==
LOC: EME 21:05
DX: F32.9 Major depressive disorder, single episode, unspecified (principal); R45.851 Suicidal ideations; R45.850 Homicidal ideations; Z04.6 Encounter for general psychiatric examination, requested by authority; E73.9 Lactose intolerance, unspecified; F20.9 Schizophrenia, unspecified; Z91.013 Allergy to seafood
CPT/HCPCS: 90837; 99281; 99285; J1630; J2060

== ENCOUNTER 2017-11-04 19:27 | Emergency (ER) | payer OTHER ==
[~2017-11-04] VITALS: Ht 154.9 cm; Wt 71.6 kg
[2017-11-04 20:53] VITALS: BP 00/0
== END 2017-11-04 21:13 | disposition home or self-care (01) ==
LOC: EME 19:27
DX: Z76.0 Encounter for issue of repeat prescription (principal); B37.3 Candidiasis of vulva and vagina; F32.9 Major depressive disorder, single episode, unspecified; F20.9 Schizophrenia, unspecified
CPT/HCPCS: 99281; 99284

== ENCOUNTER 2017-11-05 17:31 | Emergency (ER) | payer OTHER ==
[~2017-11-05] VITALS: Ht 165.1 cm; Wt 66.8 kg
[2017-11-05 18:53] VITALS: BP 111/57
== END 2017-11-05 18:56 | disposition home or self-care (01) ==
LOC: EME 17:31
DX: F32.9 Major depressive disorder, single episode, unspecified (principal); F20.9 Schizophrenia, unspecified; F31.9 Bipolar disorder, unspecified; B35.1 Tinea unguium; Z59.0 Homelessness; E73.9 Lactose intolerance, unspecified
CPT/HCPCS: 80048; 84702; 85027; 99281; 99284; G0480

== ENCOUNTER 2017-11-06 15:25 | Inpatient (IN) | payer OTHER ==
[~2017-11-06] VITALS: Ht 165.1 cm; Wt 70.4 kg
[2017-11-06 17:29] LABS: HEMATOCRIT 34.6 % (36.0-46.0); HEMOGLOBIN 12.2 G/DL (11.9-15.5); MCH 30.3 PG (29.0-34.0); MCHC 35.3 G/DL (30.0-36.0); MCV 86.1 FL (83-99); PLATELET COUNT 187 K/uL (156-360); RBC DIS.WIDTH-CV 13.5 % (11.8-14.6); RBC DIS.WIDTH-SD 42.3 % (39-53); RED BLOOD COUNT 4.02 M/uL (3.80-5.20); WHITE BLOOD COUNT 10.1 K/uL (4.1-10.2)
[2017-11-06 17:37] LABS: CHLORIDE 99 mEq/L (99-109); POTASSIUM 3.8 mEq/L (3.7-5.4); SODIUM 134 mEq/L (136-147)
[2017-11-06 17:38] LABS: GLUCOSE 76 mg/dL (70-99)
[2017-11-06 17:41] LABS: SERUM ETHYL ALCOHOL < 10 mg/dL
[2017-11-06 17:42] LABS: CREATININE 0.7 mg/dL (0.6-1.3); GFR ESTIMATE (CALCULATED) > 59 mL/min/
[2017-11-06 17:44] LABS: UREA NITROGEN (BUN) 7 mg/dL (9-23)
[2017-11-06 17:45] LABS: SALICYLATE < 5.0 MG/DL (15-30)
[2017-11-06 17:46] LABS: ACETAMINOPHEN (TYLENOL) < 10 mcg/mL (10-30)
[2017-11-06 18:54] LABS: AMPHETAMINE NEGATIVE (500 ng/mL); BARBITURATES NEGATIVE (200 ng/mL); BENZODIAZEPINES NEGATIVE (150 ng/mL); BUPRENORPHINE NEGATIVE (10 ng/mL); COCAINE PRESUMPTIVE POSITIVE (150 ng/mL); METHADONE NEGATIVE (200 ng/mL); METHAMPHETAMINE NEGATIVE (500 ng/mL); OPIATES (MORPHINE) NEGATIVE (100 ng/mL); OXYCODONE NEGATIVE (100 ng/mL); PHENCYCLIDINE NEGATIVE (25 ng/mL); PROPOXYPHENE NEGATIVE (300 ng/mL); THC CANNABINOIDS NEGATIVE (50 ng/mL); TRICYCLIC ANTIDEPRESSANTS NEGATIVE (300 ng/mL)
[2017-11-06 20:38] VITALS: BP 110/67
[2017-11-07 08:09] VITALS: BP 98/56
[2017-11-07 16:05] VITALS: BP 85/47
[2017-11-07 18:27] VITALS: BP 108/55
[2017-11-08 08:02] VITALS: BP 101/57
[2017-11-08 12:57] LABS: ALBUMIN 3.6 G/DL (3.2-4.8); ALKALINE PHOSPHATASE 40 IU/L (3-129); ALT (GPT) 12 IU/L (3-49); AST (GOT) 14 IU/L (2-34); CHLORIDE 108 MEQ/L (99-109); CREATININE 0.8 MG/DL (0.6-1.3); GFR ESTIMATE (CALCULATED) > 59 mL/min/; POTASSIUM 3.9 MEQ/L (3.7-5.4); TOTAL BILIRUBIN 0.3 MG/DL (0.0-1.0); TOTAL PROTEIN 6.1 G/DL (6.4-8.3); UREA NITROGEN (BUN) 11 mg/dL (9-23)
[2017-11-08 13:03] LABS: GLUCOSE 98 mg/dL (70-99); SODIUM 142 MEQ/L (136-147)
[2017-11-08 16:22] VITALS: BP 96/57
[2017-11-09 07:55] VITALS: BP 94/55
[2017-11-09 16:26] VITALS: BP 98/59
[2017-11-10 09:57] VITALS: BP 93/52
[2017-11-10 16:48] VITALS: BP 108/65
[2017-11-11 08:07] VITALS: BP 102/70
[2017-11-11 16:18] VITALS: BP 100/64
[2017-11-12 07:25] VITALS: BP 120/78
[2017-11-12 16:58] VITALS: BP 132/67
[2017-11-13 08:37] VITALS: BP 85/53
[2017-11-13 16:40] VITALS: BP 94/60
[2017-11-14 07:59] VITALS: BP 84/52
[2017-11-14 12:08] VITALS: BP 103/65
[2017-11-14 16:45] VITALS: BP 116/64
[2017-11-15 08:17] VITALS: BP 90/54
[2017-11-15] MEDS ORDERED: CHLORPROMAZINE50 MG PO (09:12)
[2017-11-15] MEDS ORDERED: DIVALPROEX SOD500 MG PO (09:12)
[2017-11-15] MEDS ORDERED: ZIPRASIDONE HCL80 MG PO (09:12)
[2017-11-15] MEDS ORDERED: CLONAZEPAM0.5 MG PO (09:25)
[2017-11-16] MEDS ORDERED: FLUPHENAZINE HCL5 MG PO (08:54)
== END 2017-11-15 12:46 | disposition home or self-care (01) | DRG 885 ==
LOC: EME 15:25 → 1WEST 19:19 → EDOF 19:19 → ENRESERV 19:23 → 1WEST 20:27
PROVIDERS: Emergency Medicine; Psychiatry & Neurology Psychiatry
DX: F25.0 Schizoaffective disorder, bipolar type (principal); F14.10 Cocaine abuse, uncomplicated; F60.0 Paranoid personality disorder; S90.529A Blister (nonthermal), unspecified ankle, initial encounter; Z91.19 Patient's noncompliance with other medical treatment and regimen
CPT/HCPCS: 70450; 80048; 80053; 80164; 84702; 84999; 85027; 90837; 90839; 97150 GO; 97166 GO; 99281; 99284; 99285; G0480; J1630; J2060; Q0161

== ENCOUNTER 2017-11-26 17:30 | Emergency (ER) | payer OTHER ==
[~2017-11-26] VITALS: Ht 165.1 cm; Wt 81.8 kg
[~2017-11-26 17:30] MED LIST changes: +CLONAZEPAM0.5 MG PO; +FLUPHENAZINE HCL5 MG PO
[2017-11-26 18:23] LABS: AMPHETAMINE NEGATIVE (500 ng/mL); BARBITURATES NEGATIVE (200 ng/mL); BENZODIAZEPINES NEGATIVE (150 ng/mL); BUPRENORPHINE NEGATIVE (10 ng/mL); COCAINE NEGATIVE (150 ng/mL); METHADONE NEGATIVE (200 ng/mL); METHAMPHETAMINE NEGATIVE (500 ng/mL); OPIATES (MORPHINE) NEGATIVE (100 ng/mL); OXYCODONE NEGATIVE (100 ng/mL); PHENCYCLIDINE NEGATIVE (25 ng/mL); PROPOXYPHENE NEGATIVE (300 ng/mL); THC CANNABINOIDS NEGATIVE (50 ng/mL); TRICYCLIC ANTIDEPRESSANTS NEGATIVE (300 ng/mL)
[2017-11-26] MEDS ORDERED: GEODON80 MG PO (18:32)
[2017-11-26] MEDS ORDERED: DEPAKOTE ER500 MG PO (18:32)
[2017-11-26 20:12] VITALS: BP 125/65
== END 2017-11-26 20:13 | disposition home or self-care (01) ==
LOC: EME 17:30
PROVIDERS: Emergency Medicine
DX: F25.0 Schizoaffective disorder, bipolar type (principal); F32.9 Major depressive disorder, single episode, unspecified; E73.9 Lactose intolerance, unspecified; F17.200 Nicotine dependence, unspecified, uncomplicated; Z91.013 Allergy to seafood
CPT/HCPCS: 80048; 85027; 90837; 99281; 99284; G0480; J1630; J2060

== ENCOUNTER 2017-12-06 17:37 | Inpatient (IN) | payer OTHER ==
[~2017-12-06] VITALS: Ht 175.3 cm; Wt 71.7 kg
[~2017-12-06 17:37] MED LIST changes: +DEPAKOTE ER500 MG PO; +GEODON80 MG PO
[2017-12-06 18:19] LABS: HEMATOCRIT 34.1 % (36.0-46.0); HEMOGLOBIN 11.3 G/DL (11.9-15.5); MCH 30.1 PG (29.0-34.0); MCHC 33.1 G/DL (30.0-36.0); MCV 90.7 FL (83-99); PLATELET COUNT 214 K/uL (156-360); RBC DIS.WIDTH-CV 14.1 % (11.8-14.6); RBC DIS.WIDTH-SD 46.9 % (39-53); RED BLOOD COUNT 3.76 M/uL (3.80-5.20); WHITE BLOOD COUNT 10.1 K/uL (4.1-10.2)
[2017-12-06 18:30] LABS: CHLORIDE 106 mEq/L (99-109); POTASSIUM 3.8 mEq/L (3.7-5.4); SODIUM 139 mEq/L (136-147)
[2017-12-06 18:32] LABS: GLUCOSE 96 mg/dL (70-99)
[2017-12-06 18:35] LABS: SERUM ETHYL ALCOHOL < 10 mg/dL
[2017-12-06 18:36] LABS: CREATININE 0.8 mg/dL (0.6-1.3); GFR ESTIMATE (CALCULATED) > 59 mL/min/
[2017-12-06 18:37] LABS: UREA NITROGEN (BUN) 18 mg/dL (9-23)
[2017-12-06 18:45] LABS: QUANTITATIVE HCG < 4.0 MIU/ML
[2017-12-07 07:51] VITALS: BP 92/52
[2017-12-07 15:44] VITALS: BP 88/42
[2017-12-08 07:37] VITALS: BP 104/55
[2017-12-09 08:46] VITALS: BP 97/53
[2017-12-09 17:04] VITALS: BP 130/72
[2017-12-10 08:39] VITALS: BP 102/58
[2017-12-10 16:10] VITALS: BP 107/65
[2017-12-11 08:53] VITALS: BP 96/51
[2017-12-11 16:01] VITALS: BP 124/70
[2017-12-12 07:43] VITALS: BP 96/53
[2017-12-12 16:31] VITALS: BP 118/79
[2017-12-13 08:02] VITALS: BP 110/64
[2017-12-13 16:14] VITALS: BP 113/70
[2017-12-14 08:08] VITALS: BP 102/61
[2017-12-14 16:20] VITALS: BP 118/65
[2017-12-15 08:25] VITALS: BP 107/63
[2017-12-15 17:03] VITALS: BP 121/68
[2017-12-16 07:48] VITALS: BP 120/71
[2017-12-16] MEDS ORDERED: CHLORPROMAZINE50 MG PO ×2 (08:48→08:50)
[2017-12-16] MEDS ORDERED: BENADRYL25 MG PO ×2 (08:48→08:50)
[2017-12-16] MEDS ORDERED: ESCITALOPRAM OX10 MG PO ×2 (08:48→08:50)
[2017-12-16] MEDS ORDERED: TRIPLE ANTIB28.35 GM TP (08:48)
[2017-12-16] MEDS ORDERED: DIVALPROEX SOD500 MG PO ×2 (08:48→08:50)
[2017-12-16] MEDS ORDERED: ZIPRASIDONE HCL80 MG PO ×2 (08:48→08:50)
== END 2017-12-16 14:32 | disposition home or self-care (01) | DRG 885 ==
LOC: EME 17:37 → EDOF 12-07 02:40 → 1WEST 12-07 02:40 → ENRESERV 12-07 03:13 → 1WEST 12-07 04:04
PROVIDERS: Emergency Medicine
DX: F25.0 Schizoaffective disorder, bipolar type (principal); R45.851 Suicidal ideations; G47.00 Insomnia, unspecified; F41.9 Anxiety disorder, unspecified; Z59.0 Homelessness; Z91.14 Patient's other noncompliance with medication regimen; Z63.8 Other specified problems related to primary support group; Z91.19 Patient's noncompliance with other medical treatment and regimen
CPT/HCPCS: 71046; 80048; 84702; 85027; 90837; 97150 GO; 97166 GO; 99281; 99283; G0480; J1630; J2060; Q0161

== ENCOUNTER 2018-01-01 19:11 | Inpatient (IN) | payer OTHER ==
[~2018-01-01] VITALS: Ht 154.9 cm; Wt 70.2 kg
[~2018-01-01 19:11] MED LIST changes: +ESCITALOPRAM OX10 MG PO; +TRIPLE ANTIB28.35 GM TP
[2018-01-01 20:07] LABS: BASOPHIL (%) 0.3 % (0-1); EOSINOPHIL (%) 0.4 % (0-5); HEMATOCRIT 34.7 % (36.0-46.0); HEMOGLOBIN 12.3 G/DL (11.9-15.5); IMMATURE GRANULOCYTE (%) 0.4 % (0.0-0.7); LYMPHOCYTE (%) 28.6 % (15-42); LYMPHOCYTE COUNT 2.6 K/uL (1.0-2.8); MCH 31.4 PG (29.0-34.0); MCHC 35.4 G/DL (30.0-36.0); MCV 88.5 FL (83-99); MONOCYTE COUNT 0.6 K/uL (0-0.8); NEUTROPHIL (%) 63.3 % (45-76); NEUTROPHIL COUNT 5.7 K/uL (1.8-6.4); PLATELET COUNT 177 K/uL (156-360); RBC DIS.WIDTH-CV 13.3 % (11.8-14.6); RBC DIS.WIDTH-SD 43.8 % (39-53); RED BLOOD COUNT 3.92 M/uL (3.80-5.20); WHITE BLOOD COUNT 9.1 K/uL (4.1-10.2)
[2018-01-01 20:18] LABS: CHLORIDE 103 mEq/L (99-109); POTASSIUM 4.1 mEq/L (3.7-5.4); SODIUM 139 mEq/L (136-147)
[2018-01-01 20:20] LABS: GLUCOSE 99 mg/dL (70-99)
[2018-01-01 20:23] LABS: SERUM ETHYL ALCOHOL < 10 mg/dL
[2018-01-01 20:24] LABS: CREATININE 0.8 mg/dL (0.6-1.3); GFR ESTIMATE (CALCULATED) > 59 mL/min/; UREA NITROGEN (BUN) 9 mg/dL (9-23)
[2018-01-01 20:33] LABS: QUANTITATIVE HCG < 4.0 MIU/ML
[2018-01-01 21:00] LABS: AMPHETAMINE NEGATIVE (500 ng/mL); BARBITURATES NEGATIVE (200 ng/mL); BENZODIAZEPINES NEGATIVE (150 ng/mL); BUPRENORPHINE NEGATIVE (10 ng/mL); COCAINE NEGATIVE (150 ng/mL); METHADONE NEGATIVE (200 ng/mL); METHAMPHETAMINE NEGATIVE (500 ng/mL); OPIATES (MORPHINE) NEGATIVE (100 ng/mL); OXYCODONE NEGATIVE (100 ng/mL); PHENCYCLIDINE NEGATIVE (25 ng/mL); PROPOXYPHENE NEGATIVE (300 ng/mL); THC CANNABINOIDS NEGATIVE (50 ng/mL); TRICYCLIC ANTIDEPRESSANTS NEGATIVE (300 ng/mL)
[2018-01-01 23:28] VITALS: BP 108/71
[2018-01-02 07:39] VITALS: BP 122/74
[2018-01-02 16:22] VITALS: BP 142/74
[2018-01-03 08:02] VITALS: BP 109/64
[2018-01-03 16:02] VITALS: BP 104/62
[2018-01-04 16:30] VITALS: BP 109/64
[2018-01-05 08:19] VITALS: BP 111/65
[2018-01-05 16:35] VITALS: BP 109/70
[2018-01-06 07:53] VITALS: BP 115/71
[2018-01-06 16:35] VITALS: BP 119/77
[2018-01-07 08:07] VITALS: BP 91/52
[2018-01-07 16:41] VITALS: BP 91/53
[2018-01-08 10:06] VITALS: BP 108/69
[2018-01-08 10:07] VITALS: BP 109/67
[2018-01-08 16:20] VITALS: BP 103/59
[2018-01-09 07:56] VITALS: BP 89/51
[2018-01-09] MEDS ORDERED: ESCITALOPRAM OX10 MG PO (10:12)
[2018-01-09] MEDS ORDERED: THORAZINE25 MG PO (10:12)
== END 2018-01-09 12:16 | disposition home or self-care (01) | DRG 885 ==
LOC: EME 19:11 → EDOF 21:05 → 1WEST 21:05 → ENRESERV 21:43 → 1WEST 23:13
PROVIDERS: Emergency Medicine
DX: F25.0 Schizoaffective disorder, bipolar type (principal); R45.851 Suicidal ideations; F60.0 Paranoid personality disorder; F17.210 Nicotine dependence, cigarettes, uncomplicated
CPT/HCPCS: 80048; 84702; 85025; 90837; 97150 GO; 97165 GO; 99281; 99285; G0480; Q0161

== ENCOUNTER 2018-01-14 04:07 | Inpatient (IN) | payer OTHER ==
[~2018-01-14] VITALS: Ht 154.9 cm; Wt 70.0 kg
[~2018-01-14 04:07] MED LIST changes: +THORAZINE25 MG PO
[2018-01-14 04:54] LABS: APPEARANCE SL.HAZY ((CLEAR)); BILIRUBIN NEGATIVE; BLOOD NEGATIVE; COLOR YELLOW ((YELLOW)); GLUCOSE (STRIP) NEGATIVE; KETONES NEGATIVE; LEUKOCYTES NEGATIVE; NITRITE NEGATIVE; PROTEIN (STRIP) 30; SPECIFIC GRAVITY 1.025 (1.000-1.030); UROBILINOGEN 0.2 MG/DL (0.2-1.0)
[2018-01-14 05:04] LABS: AMPHETAMINE NEGATIVE (500 ng/mL); BARBITURATES NEGATIVE (200 ng/mL); BENZODIAZEPINES NEGATIVE (150 ng/mL); BUPRENORPHINE NEGATIVE (10 ng/mL); COCAINE NEGATIVE (150 ng/mL); METHADONE NEGATIVE (200 ng/mL); METHAMPHETAMINE NEGATIVE (500 ng/mL); OPIATES (MORPHINE) NEGATIVE (100 ng/mL); OXYCODONE NEGATIVE (100 ng/mL); PHENCYCLIDINE NEGATIVE (25 ng/mL); PROPOXYPHENE NEGATIVE (300 ng/mL); THC CANNABINOIDS NEGATIVE (50 ng/mL); TRICYCLIC ANTIDEPRESSANTS NEGATIVE (300 ng/mL)
[2018-01-14 05:15] LABS: RED BLOOD CELLS NONE SEEN /HPF (0-5); WHITE BLOOD CELLS NONE SEEN /HPF (0-5)
[2018-01-14 05:16] LABS: BACTERIA 1+ /HPF; EPITHELIAL CELLS 1+ /HPF; MUCUS 3+ /LPF; UCUL ADDED? NO
[2018-01-14 05:29] LABS: CHLORIDE 105 mEq/L (99-109); POTASSIUM 3.9 mEq/L (3.7-5.4); SODIUM 139 mEq/L (136-147)
[2018-01-14 05:30] LABS: GLUCOSE 90 mg/dL (70-99)
[2018-01-14 05:32] LABS: HEMOGLOBIN 11.9 G/DL (11.9-15.5); MCH 30.9 PG (29.0-34.0); MCV 90.9 FL (83-99); PLATELET COUNT 162 K/uL (156-360); RBC DIS.WIDTH-CV 13.3 % (11.8-14.6); RBC DIS.WIDTH-SD 43.5 % (39-53); RED BLOOD COUNT 3.85 M/uL (3.80-5.20); WHITE BLOOD COUNT 11.2 K/uL (4.1-10.2)
[2018-01-14 05:33] LABS: SERUM ETHYL ALCOHOL < 10 mg/dL
[2018-01-14 05:34] LABS: CREATININE 0.8 mg/dL (0.6-1.3); GFR ESTIMATE (CALCULATED) > 59 mL/min/
[2018-01-14 05:35] LABS: UREA NITROGEN (BUN) 13 mg/dL (9-23)
[2018-01-14 05:43] LABS: QUANTITATIVE HCG < 4.0 MIU/ML
[2018-01-14 15:11] VITALS: BP 103/64
[2018-01-15 07:44] VITALS: BP 104/57
[2018-01-15 15:17] VITALS: BP 104/64
[2018-01-16 07:43] VITALS: BP 103/53
[2018-01-17 07:59] VITALS: BP 96/49
[2018-01-17 16:22] VITALS: BP 113/75
[2018-01-18 08:04] VITALS: BP 107/64
[2018-01-19] MEDS ORDERED: DEPAKOTE500 MG PO (07:50)
[2018-01-19] MEDS ORDERED: GEODON80 MG PO (07:50)
[2018-01-19] MEDS ORDERED: BENADRYL25 MG PO (07:51)
== END 2018-01-18 14:36 | disposition home or self-care (01) | DRG 885 ==
LOC: EME 04:07 → 1WEST 13:53 → ENRESERV 13:53 → EDOF 13:53 → CANRESERV 13:58 → ENRESERV 13:58 → 1WEST 14:25
PROVIDERS: Emergency Medicine
DX: F25.0 Schizoaffective disorder, bipolar type (principal); F60.9 Personality disorder, unspecified; Z59.0 Homelessness; Z91.14 Patient's other noncompliance with medication regimen; F17.210 Nicotine dependence, cigarettes, uncomplicated; G47.00 Insomnia, unspecified
CPT/HCPCS: 80048; 81003; 84702; 85027; 90837; 97150 GO; 97165 GO; 99281; 99285; G0480; J1630; J2060; J3486; Q0177

== ENCOUNTER 2018-01-19 05:48 | Emergency (ER) | payer OTHER ==
[~2018-01-19] VITALS: Ht 154.9 cm; Wt 70.0 kg
[2018-01-19 07:44] LABS: BASOPHIL (%) 0.3 % (0-1); EOSINOPHIL (%) 0.8 % (0-5); EOSINOPHIL COUNT 0.1 K/uL (0-0.3); HEMATOCRIT 34.9 % (36.0-46.0); HEMOGLOBIN 11.9 G/DL (11.9-15.5); IMMATURE GRANULOCYTE (%) 0.4 % (0.0-0.7); LYMPHOCYTE (%) 30.4 % (15-42); MCH 31.1 PG (29.0-34.0); MCHC 34.1 G/DL (30.0-36.0); MCV 91.1 FL (83-99); MONOCYTE (%) 5.7 % (3-12); MONOCYTE COUNT 0.6 K/uL (0-0.8); NEUTROPHIL (%) 62.4 % (45-76); NEUTROPHIL COUNT 6.2 K/uL (1.8-6.4); PLATELET COUNT 179 K/uL (156-360); RBC DIS.WIDTH-CV 13.4 % (11.8-14.6); RBC DIS.WIDTH-SD 44.6 % (39-53); RED BLOOD COUNT 3.83 M/uL (3.80-5.20); WHITE BLOOD COUNT 9.9 K/uL (4.1-10.2)
[2018-01-19] MEDS ORDERED: DEPAKOTE500 MG PO (07:50)
[2018-01-19] MEDS ORDERED: GEODON80 MG PO (07:50)
[2018-01-19] MEDS ORDERED: BENADRYL25 MG PO (07:51)
[2018-01-19 08:25] LABS: CHLORIDE 103 mEq/L (99-109); POTASSIUM 3.8 mEq/L (3.7-5.4); SODIUM 140 mEq/L (136-147)
[2018-01-19 08:27] LABS: GLUCOSE 89 mg/dL (70-99)
[2018-01-19 08:30] LABS: SERUM ETHYL ALCOHOL < 10 mg/dL
[2018-01-19 08:31] LABS: CREATININE 0.9 mg/dL (0.6-1.3); GFR ESTIMATE (CALCULATED) > 59 mL/min/
[2018-01-19 08:32] LABS: UREA NITROGEN (BUN) 15 mg/dL (9-23)
[2018-01-19 18:36] VITALS: BP 110/63
== END 2018-01-19 18:37 ==
LOC: EME 05:48
PROVIDERS: Emergency Medicine
DX: F32.9 Major depressive disorder, single episode, unspecified (principal); R45.851 Suicidal ideations; Z91.14 Patient's other noncompliance with medication regimen; F25.0 Schizoaffective disorder, bipolar type; R45.1 Restlessness and agitation; F17.200 Nicotine dependence, unspecified, uncomplicated
CPT/HCPCS: 80048; 81003; 85025; 90837; 99281; 99285; G0480; J1630; J2060